=== PATIENT | male | born 1990 | race Caucasian/White ===

== ENCOUNTER 2025-07-05 09:57 | Emergency (ER) | payer MEDICAID, SELFPAY ==
[2025-07-05 10:10] VITALS: BP 103/83; PULSE 55; TEMP 36.7; O2SAT 96; BMI 29.8
--- NOTE | 2025-07-05 10:14 | XR_ITS ---
The [address] [address] Patient Name: MERCY FLORES MRN: [id number] date: 1990 Sex: M Assigned Patient Location: ED.MAIN Current Patient Location: ED.MAIN Accession/Order Number: [id number] Exam Date: 07/05/2025 11:16 Report Date: 07/05/2025 11:18 At the request of: LOUIS GEORGE MD Procedure: XR ankle LT min 3V LEFT ANKLE - 3 views CLINICAL HISTORY: injury COMPARISON: None FINDINGS: Mild soft tissue swelling. Ankle mortise appears intact without acute bony process. XR/XR ankle LT min 3V IMPRESSION: NO ACUTE BONY PROCESS. Impression dictated by: Mercy Friend Jr., D.OJenny 07/05/2025 11:18 AM Dictation Location: [place] [address] Electronically authenticated by: [id number] Y Date: 07/05/2025 11:18
--- NOTE | 2025-07-05 10:32 | ED_ITS ---
HPI HPI - General Adult General Chief complaint: Extremity Injury, Lower Stated complaint: lower extremity injury -07/05 Time Seen by Provider: 07/05/25 10:15 Source: patient Mode of arrival: Wheelchair Limitations: no limitations History of Present Illness HPI narrative: 34-year-old male presents to the emergency department for pain in his left ankle. About an hour ago he stepped off of a curb and twisted his ankle. He points to the lateral malleolus. No other injury was sustained. He felt a popping feeling when this occurred. The pain is moderate. Related Data Allergies Allergy/AdvReac Type Severity Reaction Status Date / Time No Known Drug Allergies Allergy Verified 07/05/25 10:09 Opioid HPI Opioid Management Most Recent Opioid Data: Last Pain Scale 8 Today, 10:21 Review of Systems ROS Narrative A ten point review of systems is negative except as noted above. [facility] Medical History (Updated 07/05/25 @ 11:44 by Matt Burk MD) Crohn disease ?K50.90 - Crohn's disease, unspecified, without complications (ICD-10) Social History Little interest or pleasure in doing things: not at all Feeling down, depressed, or hopeless: not at all Exam Narrative Exam Narrative: Nurses note and vital signs reviewed and patient is not hypoxic. General: The patient appears well and in no apparent distress. Patient is resting comfortably on cart. Skin: Warm, dry, no pallor noted. There is no rash noted. Head: Normocephalic, atraumatic Eye: Normal conjunctiva, no drainage Ears, Nose, Mouth, and Throat: oral mucosa is moist. Nares patent. Cardiovascular: Regular Rate and Rhythm Respiratory: Patient is in no distress, no accessory muscle use, lungs are clear to auscultation, no wheezing, rales or rhonchi Back: non-tender GI: Soft and nontender Musculoskeletal: There may be perhaps mild swelling over the lateral malleolus. Dorsalis pedis pulse 2+ and the foot is nontender including the fifth metatarsal area. Neurological: A&O, normal speech Psychiatric: Cooperative Constitutional Vital Signs, click to edit/add: Last Vital Signs Temp 98.1 F 07/05/25 10:10 Pulse 55 L 07/05/25 10:10 Resp 14 07/05/25 10:10 BP 103/83 07/05/25 10:10 Pulse Ox 96 07/05/25 10:10 O2 Del Method Room Air 07/05/25 10:10 Course Vital Signs Vital signs: Vital Signs Temperature 98.1 F 07/05/25 10:10 Pulse Rate 55 L 07/05/25 10:10 Respiratory Rate 14 07/05/25 10:10 Blood Pressure 103/83 07/05/25 10:10 Pulse Oximetry 96 07/05/25 10:10 Oxygen Delivery Method Room Air 07/05/25 10:10 Temperature 98.1 F 07/05/25 10:10 Pulse Rate 55 L 07/05/25 10:10 Respiratory Rate 14 07/05/25 10:10 Blood Pressure 103/83 07/05/25 10:10 Pulse Oximetry 96 07/05/25 10:10 Oxygen Delivery Method Room Air 07/05/25 10:10 Medical Decision Making MDM Narrative Medical decision making narrative: X-ray is negative. My clinical impression is that he has an ankle sprain. Gurwinder wrap and air splint applied, application checked by me and found to be appropriate, he is neurovascularly intact. He was also placed on crutches and was recommended ice rest and ibuprofen. Treatment diagnosis and follow-up were discussed with the patient. Differential Diagnosis Differential Diagnosis: Ankle sprain, ankle fracture Imaging Data Left ankle x-ray: Radiologist's impression: ITS Impressions Ankle X-Ray 07/05/25 10:14 IMPRESSION: NO ACUTE BONY PROCESS. Impression dictated by: Ryan Friend Jr., D.O. 07/05/2025 11:18 AM Dictation Location: [place] [address] Electronically authenticated by: [id number] Y Date: 07/05/2025 11:18 Discharge Plan Discharge Chief Complaint: Extremity Injury, Lower Clinical Impression: Left ankle sprain Patient Disposition: Home, Self-Care Time of Disposition Decision: 11:44 Condition: Good Mode of Transportation: Private Vehicle Print Language: French Instructions: Ankle Sprain (ED) Referrals: Physician,Non-Staff, MD [Primary Care Provider] - 1 week
[2025-07-05 12:00] VITALS: BP 128/83; PULSE 71; O2SAT 99
== END 2025-07-05 12:00 | disposition home or self-care (01) ==
PROVIDERS: Emergency Provider Emergency Medicine
DX: S93.402A Sprain of unspecified ligament of left ankle, initial encounter (principal); W18.49XA Other slipping, tripping and stumbling without falling, initial encounter
CPT/HCPCS: 73610; 99283